=== PATIENT | male | born 2000 | race Caucasian/White ===

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

== ENCOUNTER 2019-08-26 15:56 | Emergency (ER) | payer SELFPAY ==
[~2019-08-26] VITALS: Ht 170.2 cm; Wt 68.0 kg
[~2019-08-26 15:56] MED LIST changes: +ANUCORT-HC25 MG RE
[2019-08-26] MEDS ORDERED: GABAPENTIN100 MG PO (16:08)
[2019-08-26] MEDS ORDERED: TRAMADOL HCL50 MG PO (16:09)
[2019-08-26] MEDS ORDERED: EFFEXOR100 MG PO (16:10)
[2019-08-26 17:10] VITALS: BP 126/86
== END 2019-08-26 17:10 | disposition home or self-care (01) | DRG 556 ==
LOC: ED 15:56
DX: M25.551 Pain in right hip (principal); W01.0XXA Fall on same level from slipping, tripping and stumbling without subsequent striking against object, initial encounter; Z98.1 Arthrodesis status

== ENCOUNTER 2019-09-01 19:24 | Emergency (ER) | payer SELFPAY ==
[~2019-09-01] VITALS: Ht 170.2 cm; Wt 66.2 kg
[~2019-09-01 19:24] MED LIST changes: +EFFEXOR100 MG PO; +GABAPENTIN100 MG PO; +TRAMADOL HCL50 MG PO
[2019-09-01 20:29] LABS: URINE BILIRUBIN - DIPSTICK NEGATIVE (NEGATIVE); URINE BLOOD DIPSTICK NEGATIVE (NEGATIVE); URINE COLOR YELLOW; URINE GLUCOSE - DIPSTICK NEGATIVE (NEGATIVE); URINE KETONE NEGATIVE (NEGATIVE); URINE LEUK ESTERASE NEGATIVE (NEGATIVE); URINE NITRITE - DIPSTICK NEGATIVE (Negative); URINE PROTEIN - DIPSTICK NEGATIVE (NEG-TRACE); URINE UROBILINOGEN - DIPSTICK 0.2 E.U./dL (0.2)
[2019-09-01 21:13] VITALS: BP 131/71
[2019-11-22] MEDS ORDERED: ZOFRAN4 MG/TAB PO (17:36)
== END 2019-09-01 21:12 | disposition home or self-care (01) | DRG 552 ==
LOC: ED 19:24
PROVIDERS: Emergency Medicine
DX: M54.5 Low back pain (principal); R50.9 Fever, unspecified; W01.0XXA Fall on same level from slipping, tripping and stumbling without subsequent striking against object, initial encounter

== ENCOUNTER 2019-11-22 | Emergency (ER) | payer SELFPAY ==
[2019-11-22] MEDS ORDERED: GABAPENTIN400 M2 PO (17:21)
[2019-11-22] MEDS ORDERED: BUSPAR5 M1 PO (17:22)
[2019-11-22] MEDS ORDERED: ARIPIPRAZOLE10 MG PO (17:22)
[2019-11-22] MEDS ORDERED: ZOFRAN4 MG/TAB PO ×2 (17:36)
== END 2019-11-22 17:45 | disposition home or self-care (01) | DRG 866 ==
DX: B34.9 Viral infection, unspecified (principal); F17.210 Nicotine dependence, cigarettes, uncomplicated

== ENCOUNTER 2020-06-18 14:27 | Emergency (ER) | payer SELFPAY ==
[~2020-06-18] VITALS: Ht 170.2 cm; Wt 70.0 kg
[~2020-06-18 14:27] MED LIST changes: +ARIPIPRAZOLE10 MG PO; +BUSPAR5 M1 PO; +GABAPENTIN400 M2 PO
[2020-06-18] MEDS ORDERED: FLEXERIL5 MG PO (16:12)
[2020-06-18 16:26] VITALS: BP 129/83
== END 2020-06-18 16:26 | disposition home or self-care (01) | DRG 552 ==
LOC: ED 14:27
DX: M54.5 Low back pain (principal); F17.210 Nicotine dependence, cigarettes, uncomplicated; Z98.1 Arthrodesis status

== ENCOUNTER 2020-08-17 15:31 | Emergency (ER) | payer SELFPAY ==
[~2020-08-17] VITALS: Ht 170.2 cm; Wt 56.2 kg
[~2020-08-17 15:31] MED LIST changes: +FLEXERIL5 MG PO
[2020-08-17] MEDS ORDERED: AMOXICILLIN500 M2 PO ×2 (17:10→17:16)
[2020-08-17] MEDS ORDERED: TAM75CAP PO ×2 (17:10→17:16)
[2020-08-17 17:14] VITALS: BP 134/88
== END 2020-08-17 17:20 | disposition home or self-care (01) | DRG 153 ==
LOC: ED 15:31
DX: J11.1 Influenza due to unidentified influenza virus with other respiratory manifestations (principal); J02.0 Streptococcal pharyngitis; F17.290 Nicotine dependence, other tobacco product, uncomplicated; Z20.828 Contact with and (suspected) exposure to other viral communicable diseases

== ENCOUNTER 2021-10-28 11:04 | Emergency (ER) | payer SELFPAY ==
[~2021-10-28] VITALS: Ht 170.2 cm; Wt 70.0 kg
[~2021-10-28 11:04] MED LIST changes: +AMOXICILLIN500 M2 PO; +TAM75CAP PO
[2021-10-28] MEDS ORDERED: ANUCORT-HC25 M1 RE (13:54)
[2021-10-28 14:14] VITALS: BP 170/94
== END 2021-10-28 14:14 | disposition home or self-care (01) | DRG 395 ==
LOC: ED 11:04
DX: K64.9 Unspecified hemorrhoids (principal); R19.04 Left lower quadrant abdominal swelling, mass and lump; F41.9 Anxiety disorder, unspecified; F31.9 Bipolar disorder, unspecified; F17.200 Nicotine dependence, unspecified, uncomplicated; Z98.1 Arthrodesis status

== ENCOUNTER 2023-03-07 23:48 | Emergency (ER) | payer SELFPAY ==
[~2023-03-07] VITALS: Ht 170.2 cm; Wt 59.0 kg
[~2023-03-07 23:48] MED LIST changes: +ANUCORT-HC25 M1 RE
[2023-03-08] VITALS (7 sets, daily range): BP systolic 127–158; BP diastolic 84–115
[2023-03-08] MEDS ORDERED: AMOXICILLIN500 MG PO (01:52)
== END 2023-03-08 02:13 | disposition home or self-care (01) | DRG 605 ==
LOC: ED 23:48
PROC: 0HQFXZZ Repair Right Hand Skin, External Approach (ICD-10-PCS; principal; 2023-03-08)
DX: S61.411A Laceration without foreign body of right hand, initial encounter (principal); F17.200 Nicotine dependence, unspecified, uncomplicated; W26.8XXA Contact with other sharp object(s), not elsewhere classified, initial encounter

== ENCOUNTER 2023-05-19 17:28 | Emergency (ER) | payer SELFPAY ==
[2023-05-19] VITALS (7 sets, daily range): BP systolic 118–129; BP diastolic 80–92
[~2023-05-19] VITALS: Ht 170.2 cm; Wt 56.0 kg
[~2023-05-19 17:28] MED LIST changes: +AMOXICILLIN500 MG PO
[2023-05-19] MEDS ORDERED: BACTRIM DS1 TAB PO (19:09)
== END 2023-05-19 20:04 | disposition home or self-care (01) | DRG 603 ==
LOC: ED 17:28
PROC: 0H9JXZZ Drainage of Left Upper Leg Skin, External Approach (ICD-10-PCS; principal; 2023-05-19)
DX: L02.416 Cutaneous abscess of left lower limb (principal); M79.5 Residual foreign body in soft tissue; F31.9 Bipolar disorder, unspecified; F41.9 Anxiety disorder, unspecified; F17.200 Nicotine dependence, unspecified, uncomplicated